=== PATIENT | female | born 1950 | race African-American/Black ===

== ENCOUNTER 2019-11-08 08:38 | Inpatient (IN) | payer MEDICARE, OTHER ==
[2019-11-08 11:20] VITALS: BMI 20.6
[2019-11-08] MEDS ORDERED: Senokot S 8.6-50 MG TAB PO PRN (11:43)
[2019-11-08] MEDS ORDERED: Acetaminophen 325 MG TAB PO PRN (11:43)
[2019-11-08] MEDS ORDERED: Dextrose 50% Abboject 50 ML SYRINGE SLOW IVP PRN (11:43)
[2019-11-08] MEDS ORDERED: Calcium Carbonate 500 MG ChewTAB PO PRN (11:43)
[2019-11-08] MEDS ORDERED: Dextrose 5% in Water 1,000 ML IV PRN (11:43)
[2019-11-08] MEDS ORDERED: Guaifenesin DM 100-10/5 ML UDCUP PO PRN (11:43)
[2019-11-08] MEDS ORDERED: HumaLOG 300 UNITS/3 ML VIAL SC PRN (11:43)
[2019-11-08] MEDS ORDERED: Ondansetron PF 4 MG/2 ML Vial IVP PRN (11:43)
[2019-11-08] MEDS ORDERED: Bisacodyl 10 MG SUPP PR PRN (11:43)
--- NOTE | 2019-11-08 13:45 | MRI ---
BRAIN MRI WITHOUT CONTRAST: 11/08/19 HISTORY: Acute infarction. TECHNIQUE: Multiplanar and multisequence MR imaging of the brain obtained without contrast. FINDINGS: There is a focal area of restricted diffusion involving the periventricular white matter adjacent to the mid body of the right lateral ventricle measuring approximately 1.1 cm in AP dimension consistent with an area of acute right sided infarction. The axial gradient echo imaging demonstrates no intrac ranial hemorrhage. No additional areas of acute infarction are noted on this examination. There is multifocal periventricular deep and subcortical white matter T2 and FLAIR hyperintensity sug gesting small vessel disease. Regional bone marrow signal intensity appears grossly unremarkable. The imaged paranasal sinuses and mastoid air cells appear grossly unremarkable. Limited assessment of the arterial flow voids at the axial level of the skull base secondary to motio n demonstrate no acute findings. IMPRESSION: Small area of acute infarction involving the periventricular white matter adjacent to the body of the right lateral ventricle. Small vessel disease. POS: [facility]
--- NOTE | 2019-11-08 14:03 | CON ---
NEUROLOGY CONSULTATION DATE OF CONSULTATION: 11/08/2019 REASON FOR CONSULTATION: Left-sided weakness. HISTORY OF PRESENT ILLNESS: Ms. Sweeney is a 69-year-old female with history significant for hypertension, diabetes, gastroesophageal reflux disease, hyperlipidemia, presented to the [facility] Emergency Room with acute onset left-sided weakness and slurred speech. She was first taken to [facility] and then transferred to [facility] for further management of stroke. The patient denies nausea, vomiting, headache, chest pain, abdominal pain, dizziness, vertigo, loss of vision, or abnormal body movements associated with stroke-like symptoms. REVIEW OF SYSTEMS: All 10 systems were reviewed and were negative except pertinent positives and negatives mentioned in the HPI. PAST MEDICAL HISTORY: Hypertension, hyperlipidemia, diabetes, gastroesophageal reflux disease. PAST SURGICAL HISTORY: No significant past surgical history. FAMILY HISTORY: Significant for hypertension and diabetes. ALLERGIES: METFORMIN, PENICILLIN. SOCIAL HISTORY: The patient denies smoking, alcohol, or illegal drug use. PHYSICAL EXAMINATION: VITAL SIGNS: Blood pressure 185/86, pulse 62, respiratory rate 17, and temperature 98.4. GENERAL: Alert and awake female, in no acute distress. CVS: Regular rate and rhythm. CHEST: Clear. ABDOMEN: Soft. NECK: Supple. NEUROLOGIC: Mental status, the patient is alert and oriented to person, place, and time. Recent and remote memory intact. Fund of knowledge is appropriate. Cranial nerves 2 through 12 intact. Motor, muscle tone is decreased in the left upper and lower extremities. Bulk is normal. Strength 5/5 in the right upper and lower extremity and 2/5 in the left upper and lower extremity. Decreased sensation to touch on the left. Cerebellar, finger-nose testing unable to perform on the left secondary to weakness. DATA REVIEWED: MRI of the brain reviewed which was consistent with acute infarction in the right periventricular matter. ASSESSMENT AND PLAN: Ms. Zahra Geiger is a 69-year-old with history significant for hypertension, hyperlipidemia, gastroesophageal reflux disease, and diabetes, She presented with slurred speech and acute onset left-sided weakness, most likely stroke in the right middle cerebral artery distribution. MRI of the brain completed, results pending. Recommend 2D echo to evaluate for left ventricular ejection fraction, telemetry, carotid Dopplers to rule out hemodynamically significant stenosis. Neuro checks every 4 hours. Recommend aspirin and high-intensity statin for secondary stroke prevention. Check fasting lipid panel, hemoglobin A1c, and TSH. Continue home medications. Permissive blood pressure control at this time. Strict control of blood glucose. PT/OT/speech. Continue home medications. Continue medical management per Primary Team. Plan discussed with the patient and the nursing staff. Job ID: [id number] MTDD
[2019-11-08] MEDS: Sodium Chloride 0.9% 1,000 ML IV SCH (14:54)
[2019-11-08] MEDS: HumaLOG 300 UNITS/3 ML VIAL SC PRN ×2 (15:00→18:28)
--- NOTE | 2019-11-08 16:35 | HP ---
REASON FOR ADMISSION: Left hemiparesis, dysarthria, 7th nerve palsy. HISTORY OF PRESENTING ILLNESS: The patient went to [facility] in [place] after she fell 2 times once on Wednesday and yesterday as well. She was apparently sitting in her chair and was trying to ambulate when she fell both times. 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 She felt very numb on her left half of her face as well. She could not stretch her fingers or grasp stuff with her left hand. She normally walks with a cane inside the house. At [facility], the patient has had CT angio of brain and CT of brain done. She was transferred here for higher level of care. The CT angio did not reveal any stenosis, thrombus, or aneurysms. No complaints of cough or expectoration. No history of exposure to COVID. She lives alone. The patient is a right-handed person. Currently, she is oriented and is responding to questions well. PAST MEDICAL AND SURGICAL HISTORY: 1. Hypertension. 2. Diabetes mellitus type 2. 3. Dyslipidemia. 4. Prior history of right facial and arm numbness. 5. Colonoscopy. 6. Right-sided peripheral vascular disease with angioplasty. 7. Tubal ligation. 8. Upper endoscopy. CURRENT MEDICATIONS: The patient is on; 1. Atorvastatin 40 mg p.o. at bedtime. 2. Glimepiride 4 mg p.o. q.a.m. 3. Lisinopril with hydrochlorothiazide 20/25 mg p.o. daily. 4. Nifedipine extended release 30 mg p.o. at bedtime. ALLERGIES: ALLERGIC TO METFORMIN AND PENICILLIN. PERSONAL HISTORY: Smokes 10 cigarettes a day. Drinks on social occasions. Does not abuse drugs. FAMILY HISTORY: Both parents in their 70s and both have had history of heart disease. Mother was a diabetic and had breast cancer as well. CODE STATUS: Full. [employer]: Her cousin, Mr. Johan Archuleta, number to reach him is [phone]. REVIEW OF SYSTEMS: CONSTITUTIONAL: Negative for weight loss or gain, ability to conduct usual activities. SKIN: Negative for rash, itching. EYES: Negative for double vision, pain. ENT/MOUTH: Negative for nose bleeding, neck stiffness, pain, tenderness. CARDIOVASCULAR: Negative for palpitations, dyspnea on exertion, orthopnea. RESPIRATORY: Negative for shortness of breath, wheezing, cough, hemoptysis, fever or night sweats. GASTROINTESTINAL: Negative for poor appetite, abdominal pain, heartburn, nausea, vomiting, constipation, or diarrhea. GENITOURINARY: Negative for urgency, frequency, dysuria, nocturia. MUSCULOSKELETAL: Negative for pain, swelling. NEUROLOGIC/PSYCHIATRIC: Negative for anxiety, depression. ALLERGY/IMMUNOLOGIC: Negative for skin rash, bleeding tendency. PHYSICAL EXAMINATION: GENERAL: The patient is a 69-year-old female, who is currently not in any acute distress. VITAL SIGNS: Blood pressure 186/86, pulse 62 per minute, respiratory rate 18 per minute, temperature 98.4 degrees Fahrenheit, saturating 96% on room air. NECK: Supple. No elevated JVD. HEENT: Eyes; extraocular muscles intact. Pupils reacting to light. Oral cavity, mucous membranes are moist. No exudates or congestion. CARDIOVASCULAR: S1, S2 heard. Murmur plus regular rhythm. RESPIRATORY: Air entry 1+ bilateral. No ischemic ulcerations or gangrene. CENTRAL NERVOUS SYSTEM: The patient appears to have flattening of nasolabial fold on the right side. The patient also has flattening of her forehead on the left side, on the left forehead. No other obvious cranial nerve palsies were seen clinically. Motor system, strength is 1/5 in both left upper and lower extremities. Babinski is downgoing on the left side. Reflexes are equivocal on the left upper and lower, right upper and lower with 2+. Babinski is downgoing on the right. Gait was not tested. PSYCHIATRIC: The patient's mood is euthymic. No hallucinations or delusions. CLINICAL IMPRESSION AND PLAN: The patient will be admitted to Stroke Unit for acute left hemiparesis. She also has 7th nerve palsy and a bit of dysarthria as well. We will obtain MRI of brain, echo with 2D Doppler, and a 12-lead EKG as well. We will obtain consultation with Dr. Arora for Neurology. PT, OT, and speech evaluations will be requested. She will be on aspirin, Lipitor, glimepiride, lisinopril with hydrochlorothiazide, and Procardia XL for now. We will also gently hydrate her with normal saline at 70 mL per hour. If needed, further medications will be added for her hypertension. We will slowly mobilize her during her stay here. The patient likely will need inpatient rehab for discharge plan. She already has ACL tear on the left knee and current strength of 1/5 in the left lower and upper extremity in addition to that. Job ID: [id number]
[2019-11-08] MEDS: Famotidine 20 MG TAB PO SCH (21:22)
[2019-11-08] MEDS: NIFEdipine XL 30 MG TAB PO SCH (21:23)
[2019-11-08] MEDS: Atorvastatin Calcium 40 MG TAB PO SCH (21:23)
[2019-11-09 05:20] LABS: #Basophils 0.1 thou/uL (0.0-0.2); #Eosinphils 0.2 thou/uL (0.0-0.7); #Monocytes 0.6 thou/uL (0.11-0.59); #Neutrophils 2.7 thou/uL (1.40-6.50); %Eosinophils 3.1 % (0.0-10.0); %Lymphocytes 36.6 % (21.0-51.0); %Monocytes 10.8 % (0.0-10.0); %Neutrophils 48.6 % (42.0-75.0); Hemoglobin 13.2 g/dL (12.0-16.0); Mean Corpuscular HGB CONC 31.4 g/dL (32.0-36.0); Mean Corpuscular Volume 98.7 fL (78.0-98.0); Mean Platelet Volume 8.8 fL (7.4-10.4); Platelet Count 248 thou/uL (130-400); RBC Distribution Width 11.5 % (11.5-14.5); Red Blood Cell (RBC) Count 4.27 mill/uL (4.20-5.40); White Blood Cell (WBC) Count 5.5 thou/uL (4.8-10.8)
[2019-11-09] MEDS: Sodium Chloride 0.9% 1,000 ML IV SCH (05:31)
[2019-11-09] MEDS: HumaLOG 300 UNITS/3 ML VIAL SC PRN ×3 (05:36→18:01)
[2019-11-09 05:41] LABS: ALT (SGPT) 10 U/L (8-55); AST (SGOT) 13 U/L (5-34); Albumin 3.5 g/dL (3.4-4.8); Alkaline Phosphatase 60 U/L (40-110); Anion Gap 13 mmol/L (10-20); BUN (Urea Nitrogen) 10 mg/dL (9.8-20.1); Bilirubin, Total 0.6 mg/dL (0.2-1.2); Calc. Creatinine Clearance 77 mL/min (70-130); Calcium 9.4 mg/dL (7.8-10.44); Carbon Dioxide 23 mmol/L (23-31); Cardiac Risk 3.4 (Less than 4.5); Chloride 106 mmol/L (98-107); Cholesterol 179 mg/dl (< 200 Desired); Estimated GFR-MDRD Greater than 90; Globulin 3.5 g/dL (2.4-3.5); Glucose 214 mg/dL (80-115); HDL Cholesterol 53 mg/dL (>60 Neg Risk); LDL Cholesterol, Calculated 104 mg/dL; Potassium 3.5 mmol/L (3.5-5.1); Sodium 138 mmol/L (136-145); Triglycerides 109 mg/dL (Less than 150)
[2019-11-09] MEDS: Glimepiride 4 MG TAB PO SCH (09:03)
[2019-11-09] MEDS: Aspirin 81 mg Enteric Coated Tablet PO SCH (09:03)
[2019-11-09] MEDS: Enoxaparin Sodium 40 MG/0.4 ML SYRINGE SC SCH (09:04)
[2019-11-09] MEDS: Famotidine 20 MG TAB PO SCH ×2 (09:04→22:00)
[2019-11-09] MEDS: Lisinopril/Hydrochlorothiazide 20/25 mg Tablet PO SCH (09:05)
--- NOTE | 2019-11-09 10:02 | PDOC.HOSPP ---
- Subjective Encounter Date: 11/09/19 Encounter Time: 09:30 Subjective: Ms. Geiger was upright in bed without overnight complaints. Denies pain. She is still 1/5 motor strength in LUE and LLE. PT came to see her yesterday but she did not ambulate. Speech therapy said she could swallow pureed. - Objective Vital Signs & Weight: Vital Signs (12 hours) Temp Pulse Resp BP BP Pulse Ox 11/09/19 09:05 65 161/87 H 11/09/19 07:20 98.1 F 64 21 H 148/73 H 98 11/09/19 04:10 98.0 F 59 L 16 155/78 H 95 11/09/19 00:45 97.9 F 59 L 20 181/88 H 98 Weight Weight 57.969 kg I&O: 11/08/19 11/09/19 11/10/19 06:59 06:59 06:59 Intake Total 1174 Output Total 350 Balance 824 Result Diagrams: 11/09/19 04:43 11/09/19 04:43 Additional Labs: Accuchecks 11/09/19 11/08/19 11/08/19 05:35 21:26 15:59 POC Glucose 207 H 186 H 237 H 11/08/19 14:15 POC Glucose 270 H Hospitalist ROS - Review of Systems Constitutional: denies: fever, chills Respiratory: denies: cough, shortness of breath Musculoskeletal: denies: other (generalized pain) Neurological: reports: weakness. denies: change in speech - Medication Medications: Active Medications Generic Name Dose Route Start Last Admin Trade Name Tasha PRN Reason Stop Dose Admin Aspirin 81 mg 11/09/19 09:00 11/09/19 09:03 Ecotrin PO 81 mg DAILY JESSY Administration Atorvastatin Calcium 40 mg 11/08/19 21:00 11/08/19 21:23 Lipitor PO 40 mg HS JESSY Administration Enoxaparin Sodium 40 mg 11/09/19 09:00 11/09/19 09:04 Lovenox SC 40 mg 0900 JESSY Administration Famotidine 20 mg 11/08/19 21:00 11/09/19 09:04 Pepcid PO 20 mg BID JESSY Administration Glimepiride 4 mg 11/09/19 08:00 11/09/19 09:03 Amaryl PO 4 mg QAM-WM JESSY Administration Lisinopril/HCTZ 1 tab 11/09/19 09:00 11/09/19 09:05 Prinizide 20-25 PO 1 tab DAILY JESSY Administration Sodium Chloride 1,000 mls @ 70 mls/hr 11/08/19 11:45 11/09/19 05:31 Normal Saline 0.9% IV 11/09/19 16:19 1,000 mls .[id number] JESSY Administration Insulin Human Lispro 0 units 11/08/19 11:43 11/09/19 05:36 Humalog SC 4 unit .MODERATE SLIDING SC PRN Administration Moderate Correctional Scale Nifedipine 30 mg 11/08/19 21:00 11/08/19 21:23 Procardia Xl PO 30 mg HS JESSY Administration - Exam General Appearance: NAD, awake alert Eye: PERRL, anicteric sclera ENT: no oropharyngeal lesions, moist mucosa Neck: supple, no JVD Heart: RRR, no murmur Respiratory: CTAB, no wheezes Gastrointestinal: soft, non-tender, non-distended, normal bowel sounds Extremities: no cyanosis, no edema Neurological: hemiplegia Neurological - other findings: left, facial palsy Psychiatric: normal affect, A&O x 3 Hosp A/P (1) Left hemiplegia Code(s): G81.94 - HEMIPLEGIA, UNSPECIFIED AFFECTING LEFT NONDOMINANT SIDE Status: Acute (2) HTN (hypertension) Code(s): I10 - ESSENTIAL (PRIMARY) HYPERTENSION Status: Chronic Qualifiers: Hypertension type: essential hypertension Qualified Code(s): I10 - Essential (primary) hypertension (3) Dyslipidemia Code(s): E78.5 - HYPERLIPIDEMIA, UNSPECIFIED Status: Chronic (4) DM type 2 (diabetes mellitus, type 2) Status: Chronic Qualifiers: Diabetes mellitus skilled nursing insulin use: without financial brokers use Diabetes mellitus complication status: with other specified complication Qualified Code (s): E11.69 - Type 2 diabetes mellitus with other specified complication - Plan PT/OT, speech therapy, out of bed/ambulate, DVT proph w/lovenox is on aspirin, lipitor, PT/OT to eval and ambulate as tolerated likely will need rehab encourage po intake continue home htn med along with glimepride
--- NOTE | 2019-11-09 10:38 | PDOC.HOSPP ---
- Subjective Encounter Date: 11/09/19 Encounter Time: 09:30 Subjective: feels better, no new complaints no sob or trouble swallowing - Objective Vital Signs & Weight: Vital Signs (12 hours) Temp Pulse Resp BP BP Pulse Ox 11/09/19 09:05 65 161/87 H 11/09/19 07:20 98.1 F 64 21 H 148/73 H 98 11/09/19 04:10 98.0 F 59 L 16 155/78 H 95 11/09/19 00:45 97.9 F 59 L 20 181/88 H 98 Weight Weight 127 lb 12.8 oz I&O: 11/08/19 11/09/19 11/10/19 06:59 06:59 06:59 Intake Total 1174 Output Total 350 Balance 824 Result Diagrams: 11/09/19 04:43 11/09/19 04:43 Additional Labs: Accuchecks 11/09/19 11/08/19 11/08/19 05:35 21:26 15:59 POC Glucose 207 H 186 H 237 H 11/08/19 14:15 POC Glucose 270 H Hospitalist ROS - Medication Medications: Active Medications Generic Name Dose Route Start Last Admin Trade Name Freq PRN Reason Stop Dose Admin Aspirin 81 mg 11/09/19 09:00 11/09/19 09:03 Ecotrin PO 81 mg DAILY JESSY Administration Atorvastatin Calcium 40 mg 11/08/19 21:00 11/08/19 21:23 Lipitor PO 40 mg HS JESSY Administration Enoxaparin Sodium 40 mg 11/09/19 09:00 11/09/19 09:04 Lovenox SC 40 mg 0900 JESSY Administration Famotidine 20 mg 11/08/19 21:00 11/09/19 09:04 Pepcid PO 20 mg BID JESSY Administration Glimepiride 4 mg 11/09/19 08:00 11/09/19 09:03 Amaryl PO 4 mg QAM-WM JESSY Administration Lisinopril/HCTZ 1 tab 11/09/19 09:00 11/09/19 09:05 Prinizide 20-25 PO 1 tab DAILY JESSY Administration Sodium Chloride 1,000 mls @ 70 mls/hr 11/08/19 11:45 11/09/19 05:31 Normal Saline 0.9% IV 11/09/19 16:19 1,000 mls .[id number] JESSY Administration Insulin Human Lispro 0 units 11/08/19 11:43 11/09/19 05:36 Humalog SC 4 unit .MODERATE SLIDING SC PRN Administration Moderate Correctional Scale Nifedipine 30 mg 11/08/19 21:00 11/08/19 21:23 Procardia Xl PO 30 mg HS JESSY Administration - Exam General Appearance: NAD, awake alert Eye: PERRL, anicteric sclera ENT: no oropharyngeal lesions, moist mucosa Neck: supple, no JVD Heart: RRR, no murmur Respiratory: no wheezes, no rales Gastrointestinal: soft, non-tender, non-distended, normal bowel sounds Extremities: no cyanosis, no edema Neurological: hemiplegia Neurological - other findings: dysarthria mild, 7th nr palsy Psychiatric: normal affect, A&O x 3 Hosp A/P (1) Left hemiplegia Code(s): G81.94 - HEMIPLEGIA, UNSPECIFIED AFFECTING LEFT NONDOMINANT SIDE Status: Acute (2) HTN (hypertension) Code(s): I10 - ESSENTIAL (PRIMARY) HYPERTENSION Status: Chronic Qualifiers: Hypertension type: essential hypertension Qualified Code(s): I10 - Essential (primary) hypertension (3) Dyslipidemia Code(s): E78.5 - HYPERLIPIDEMIA, UNSPECIFIED Status: Chronic (4) DM type 2 (diabetes mellitus, type 2) Status: Chronic Qualifiers: Diabetes mellitus terminal block assembler insulin use: without terminal block assembler use Diabetes mellitus complication status: with other specified complication Qualified Code (s): E11.69 - Type 2 diabetes mellitus with other specified complication - Plan is on aspirin, lipitor, PT/OT to eval and ambulate as tolerated likely will need rehab encourage po intake continue home htn med along with glimepride
--- NOTE | 2019-11-09 11:35 | PDOC.HOSPP ---
- Subjective Encounter Date: 11/09/19 Subjective: NEUROLOGY PROGRESS NOTE Patient alert and awake. Continues to have left hemiplegia.MRI brain positive for acute lacunar infarction. Significantdeficits. Will repeat Head CT today. - Objective Vital Signs & Weight: Vital Signs (12 hours) Temp Pulse Resp BP BP Pulse Ox 11/09/19 09:05 65 161/87 H 11/09/19 07:20 98.1 F 64 21 H 148/73 H 98 11/09/19 04:10 98.0 F 59 L 16 155/78 H 95 11/09/19 00:45 97.9 F 59 L 20 181/88 H 98 Weight Weight 127 lb 12.8 oz I&O: 11/08/19 11/09/19 11/10/19 06:59 06:59 06:59 Intake Total 1174 Output Total 350 Balance 824 Result Diagrams: 11/09/19 04:43 11/09/19 04:43 Additional Labs: Accuchecks 11/09/19 11/09/19 11/08/19 11:01 05:35 21:26 POC Glucose 204 H 207 H 186 H 11/08/19 11/08/19 15:59 14:15 POC Glucose 237 H 270 H Radiology Reviewed by me: Yes EKG Reviewed by me: Yes Hospitalist ROS - Review of Systems Constitutional: denies: fever, chills, sweats, weakness, malaise, other Eyes: denies: pain, vision change, conjunctivae inflammation, eyelid inflammation, redness, other ENT: denies: ear pain, ear discharge, nose pain, nose discharge, nose congestion , mouth pain, mouth swelling, throat pain, throat swelling, other Respiratory: denies: cough, dry, shortness of breath, hemoptysis, SOB with excertion, pleuritic pain, sputum, wheezing, other Cardiovascular: denies: chest pain, palpitations, orthopnea, paroxysmal noc. dyspnea, edema, light headedness, other Gastrointestinal: denies: nausea, vomiting, abdominal pain, diarrhea, constipation, melena, hematochezia, other Genitourinary: denies: dysuria, frequency, incontinence, hematuria, retention, other Musculoskeletal: denies: neck pain, shoulder pain, arm pain, back pain, hand pain, leg pain, foot pain, other Neurological: reports: weakness, incoordination. denies: numbness, change in speech, confusion, seizures, other - Medication Medications: Active Medications Generic Name Dose Route Start Last Admin Trade Name Freq PRN Reason Stop Dose Admin Aspirin 81 mg 11/09/19 09:00 11/09/19 09:03 Ecotrin PO 81 mg DAILY JESSY Administration Atorvastatin Calcium 40 mg 11/08/19 21:00 11/08/19 21:23 Lipitor PO 40 mg HS JESSY Administration Enoxaparin Sodium 40 mg 11/09/19 09:00 11/09/19 09:04 Lovenox SC 40 mg 0900 JESSY Administration Famotidine 20 mg 11/08/19 21:00 11/09/19 09:04 Pepcid PO 20 mg BID JESSY Administration Glimepiride 4 mg 11/09/19 08:00 11/09/19 09:03 Amaryl PO 4 mg QAM-WM JESSY Administration Lisinopril/HCTZ 1 tab 11/09/19 09:00 11/09/19 09:05 Prinizide 20-25 PO 1 tab DAILY JESSY Administration Sodium Chloride 1,000 mls @ 70 mls/hr 11/08/19 11:45 11/09/19 05:31 Normal Saline 0.9% IV 11/09/19 16:19 1,000 mls .[id number] JESSY Administration Insulin Human Lispro 0 units 11/08/19 11:43 11/09/19 05:36 Humalog SC 4 unit .MODERATE SLIDING SC PRN Administration Moderate Correctional Scale Nifedipine 30 mg 11/08/19 21:00 11/08/19 21:23 Procardia Xl PO 30 mg HS JESSY Administration Pneumococcal 13-Valent Conj Vacc 0.5 ml 11/09/19 11:45 11/09/19 11:10 Prevnar IM 11/09/19 11:46 Not Given .ONCE ONE - Exam General Appearance: awake alert Eye: PERRL ENT: normocephalic atraumatic Neck: supple Heart: RRR Respiratory: CTAB Gastrointestinal: soft Extremities: no cyanosis Skin: normal turgor Neurological: facial droop, hemiplegia, speech deficit Psychiatric: normal affect, normal behavior, A&O x 3, oriented to person, oriented to place, oriented to time Hosp A/P (1) Acute CVA (cerebrovascular accident) Code(s): I63.9 - CEREBRAL INFARCTION, UNSPECIFIED Status: Acute (2) DM type 2 (diabetes mellitus, type 2) Status: Chronic Qualifiers: Diabetes mellitus fci insulin use: without fci use Diabetes mellitus complication status: with other specified complication Qualified Code (s): E11.69 - Type 2 diabetes mellitus with other specified complication (3) Dyslipidemia Code(s): E78.5 - HYPERLIPIDEMIA, UNSPECIFIED Status: Chronic (4) HTN (hypertension) Code(s): I10 - ESSENTIAL (PRIMARY) HYPERTENSION Status: Chronic Qualifiers: Hypertension type: essential hypertension Qualified Code(s): I10 - Essential (primary) hypertension - Plan PT/OT, speech therapy, DVT proph w/SCDs 69 year old with left hemiplegia. MRI brain positive for acute infarction. Significant deficits. Will repeat Head CT today to assess for extension of stroke. Fluctuating neurological deficits . Recommend EEG to rule out seizure activity. Recommend aspirin and high intensity statin for secondary stroke prevention. Neurochecks every 4 hours. Permissive BP control. Strict control of BG. Continue home medications. PT/OT/Speech Continue medical management per primary team. Plan discussed with patient and with the team during the MDR rounds.
[2019-11-09] MEDS ORDERED: Prevnar 13-Val Conj/PF 0.5 ML SYRINGE IM ONE (11:45)
--- NOTE | 2019-11-09 13:07 | CT ---
CT BRAIN WITHOUT CONTRAST: HISTORY: Followup CVA. Left weakness. FINDINGS: A hypodensity is seen in the region of the acute infarction noted on the previous day's MRI in the pe riventricular white matter adjacent to the body of the right lateral ventricle. No hemorrhagic trans formation is seen. No new acute infarcts, hemorrhage, midline shift, or abnormal extraaxial fluid co llections are noted. Old infarction in the left thalamus was again seen. The ventricular size is ap propriate and the basilar cisterns are patent. The bony calvarium is intact. IMPRESSION: No hemorrhagic transformation of the acute infarction in the right periventricular white matter adjac ent to the body of the right lateral ventricle since the previous day's exam. POS: OFF
--- NOTE | 2019-11-09 13:56 | EEG ---
DATE OF SERVICE: 11/09/2019 ATTENDING PHYSICIAN: Luisa Arora MD. This EEG was performed using 24-channel [employer] video digital EEG machine with 24-disk electrodes. This was an extended 20 hours 52 seconds of inpatient video EEG recording, which was started on November 09, 2019. Digital analysis of the EEG was done for spike and seizure detection, which revealed no abnormalities. BACKGROUND: The posterior background rhythm was not observed. HYPERVENTILATION: Not performed. PHOTIC STIMULATION: Not performed. SLEEP: No stage changes were observed. EEG DIAGNOSIS: Absence of posterior background rhythm. CLINICAL INTERPRETATION: This EEG is consistent with mild generalized nonspecific cerebral dysfunction. Job ID: [id number]
[2019-11-09] MEDS: NIFEdipine XL 30 MG TAB PO SCH (22:00)
[2019-11-09] MEDS: Atorvastatin Calcium 40 MG TAB PO SCH (22:01)
[2019-11-10] MEDS: HumaLOG 300 UNITS/3 ML VIAL SC PRN ×3 (06:37→17:07)
[2019-11-10] MEDS: Famotidine 20 MG TAB PO SCH ×2 (08:36→20:00)
[2019-11-10] MEDS: Aspirin 81 mg Enteric Coated Tablet PO SCH (08:37)
[2019-11-10] MEDS: Glimepiride 4 MG TAB PO SCH (08:37)
[2019-11-10] MEDS: Enoxaparin Sodium 40 MG/0.4 ML SYRINGE SC SCH (08:37)
[2019-11-10] MEDS: Lisinopril/Hydrochlorothiazide 20/25 mg Tablet PO SCH (08:37)
--- NOTE | 2019-11-10 11:25 | PDOC.HOSPP ---
- Subjective Encounter Date: 11/10/19 Subjective: NEUROLOGY PROGRESS NOTE Patient alert and awake. Continues to have left hemiplegia and left hemineglect . MRI brain positive for acute lacunar infarction. Significant deficits. Repeat Head CT stable. - Objective Vital Signs & Weight: Vital Signs (12 hours) Temp Pulse Pulse Pulse Resp BP BP 11/10/19 09:31 63 64 158/78 H 148/80 H 11/10/19 08:42 11/10/19 08:37 59 L 11/10/19 08:00 98.7 F 59 L 16 11/10/19 03:55 98.1 F 59 L 16 11/09/19 23:58 98.7 F 16 BP Pulse Ox 11/10/19 09:31 11/10/19 08:42 97 11/10/19 08:37 11/10/19 08:00 160/87 H 97 11/10/19 03:55 143/68 H 99 11/09/19 23:58 160/77 H 97 Weight Weight 127 lb 12.8 oz I&O: 11/09/19 11/10/19 11/11/19 06:59 06:59 06:59 Intake Total 1174 806 600 Output Total 350 1350 Balance 824 -544 600 Result Diagrams: 11/09/19 04:43 11/09/19 04:43 Additional Labs: Accuchecks 11/10/19 11/09/19 11/09/19 05:32 20:28 16:51 POC Glucose 173 H 194 H 165 H Radiology Reviewed by me: Yes EKG Reviewed by me: Yes Hospitalist ROS - Review of Systems Constitutional: denies: fever, chills, sweats, weakness, malaise, other Respiratory: denies: cough, dry, shortness of breath, hemoptysis, SOB with excertion, pleuritic pain, sputum, wheezing, other Cardiovascular: denies: chest pain, palpitations, orthopnea, paroxysmal noc. dyspnea, edema, light headedness, other Gastrointestinal: denies: nausea, vomiting, abdominal pain, diarrhea, constipation, melena, hematochezia, other Genitourinary: denies: dysuria, frequency, incontinence, hematuria, retention, other Musculoskeletal: denies: neck pain, shoulder pain, arm pain, back pain, hand pain, leg pain, foot pain, other Skin: denies: rash, lesions, destinee, bruising, other Neurological: reports: weakness, numbness, incoordination, confusion - Medication Medications: Active Medications Generic Name Dose Route Start Last Admin Trade Name Serafinq PRN Reason Stop Dose Admin Aspirin 81 mg 11/09/19 09:00 11/10/19 08:37 Ecotrin PO 81 mg DAILY JESSY Administration Atorvastatin Calcium 40 mg 11/08/19 21:00 11/09/19 22:01 Lipitor PO 40 mg HS JESSY Administration Enoxaparin Sodium 40 mg 11/09/19 09:00 11/10/19 08:37 Lovenox SC 40 mg 0900 JESSY Administration Famotidine 20 mg 11/08/19 21:00 11/10/19 08:36 Pepcid PO 20 mg BID JESSY Administration Glimepiride 4 mg 11/09/19 08:00 11/10/19 08:37 Amaryl PO 4 mg QAM-WM JESSY Administration Lisinopril/HCTZ 1 tab 11/09/19 09:00 11/10/19 08:37 Prinizide 20-25 PO 1 tab DAILY JESSY Administration Insulin Human Lispro 0 units 11/08/19 11:43 11/10/19 06:37 Humalog SC 2 unit .MODERATE SLIDING SC PRN Administration Moderate Correctional Scale Nifedipine 30 mg 11/08/19 21:00 11/09/19 22:00 Procardia Xl PO 30 mg HS JESSY Administration Sodium Chloride 10 ml 11/08/19 11:43 11/10/19 08:37 Flush - Normal Saline IVF 10 ml PRN PRN Administration Saline Flush - Exam General Appearance: awake alert Eye: PERRL ENT: normocephalic atraumatic Neck: supple Heart: RRR Respiratory: CTAB Gastrointestinal: soft Extremities: no cyanosis Skin: normal turgor Neurological: no new deficit, hemiplegia Neurological - other findings: left hemiplegia and neglect Musculoskeletal: no muscle wasting Psychiatric: normal affect, normal behavior, oriented to person, oriented to place Hosp A/P (1) Acute CVA (cerebrovascular accident) Code(s): I63.9 - CEREBRAL INFARCTION, UNSPECIFIED Status: Acute (2) DM type 2 (diabetes mellitus, type 2) Status: Chronic Qualifiers: Diabetes mellitus manager terminal insulin use: without manager terminal use Diabetes mellitus complication status: with other specified complication Qualified Code (s): E11.69 - Type 2 diabetes mellitus with other specified complication (3) Dyslipidemia Code(s): E78.5 - HYPERLIPIDEMIA, UNSPECIFIED Status: Chronic (4) HTN (hypertension) Code(s): I10 - ESSENTIAL (PRIMARY) HYPERTENSION Status: Chronic Qualifiers: Hypertension type: essential hypertension Qualified Code(s): I10 - Essential (primary) hypertension - Plan PT/OT, speech therapy, DVT proph w/SCDs 69 year old with left hemiplegia. MRI brain positive for acute infarction. Significant deficits. Repeat Head CT reviewed to assess for extension of stroke which was stable.. Fluctuating neurological deficits . EEG negative for seizure activity. Continue aspirin and high intensity statin for secondary stroke prevention. Neurochecks every 4 hours. Moniter BP Strict control of BG. Continue home medications. PT/OT/Speech Continue medical management per primary team. Plan discussed with patient and with the team during the stroke rounds.
--- NOTE | 2019-11-10 13:09 | PDOC.HOSPP ---
- Subjective Encounter Date: 11/10/19 Encounter Time: 09:00 Subjective: no new complaints, is sitting in chair is npo per speech - Objective Vital Signs & Weight: Vital Signs (12 hours) Temp Pulse Pulse Pulse Resp BP BP 11/10/19 11:48 98.8 F 69 16 11/10/19 09:31 63 64 158/78 H 148/80 H 11/10/19 08:42 11/10/19 08:37 59 L 11/10/19 08:00 98.7 F 59 L 16 11/10/19 03:55 98.1 F 59 L 16 BP Pulse Ox 11/10/19 11:48 134/82 97 11/10/19 09:31 11/10/19 08:42 97 11/10/19 08:37 11/10/19 08:00 160/87 H 97 11/10/19 03:55 143/68 H 99 Weight Weight 127 lb 12.8 oz I&O: 11/09/19 11/10/19 11/11/19 06:59 06:59 06:59 Intake Total 1174 806 600 Output Total 350 1350 Balance 824 -544 600 Result Diagrams: 11/09/19 04:43 11/09/19 04:43 Additional Labs: Accuchecks 11/10/19 11/09/19 11/09/19 05:32 20:28 16:51 POC Glucose 173 H 194 H 165 H Hospitalist ROS - Medication Medications: Active Medications Generic Name Dose Route Start Last Admin Trade Name Freq PRN Reason Stop Dose Admin Aspirin 81 mg 11/09/19 09:00 11/10/19 08:37 Ecotrin PO 81 mg DAILY JESSY Administration Atorvastatin Calcium 40 mg 11/08/19 21:00 11/09/19 22:01 Lipitor PO 40 mg HS JESSY Administration Enoxaparin Sodium 40 mg 11/09/19 09:00 11/10/19 08:37 Lovenox SC 40 mg 0900 JESSY Administration Famotidine 20 mg 11/08/19 21:00 11/10/19 08:36 Pepcid PO 20 mg BID JESSY Administration Glimepiride 4 mg 11/09/19 08:00 11/10/19 08:37 Amaryl PO 4 mg QAM-WM JESSY Administration Lisinopril/HCTZ 1 tab 11/09/19 09:00 11/10/19 08:37 Prinizide 20-25 PO 1 tab DAILY JESSY Administration Insulin Human Lispro 0 units 11/08/19 11:43 11/10/19 11:29 Humalog SC 6 unit .MODERATE SLIDING SC PRN Administration Moderate Correctional Scale Nifedipine 30 mg 11/08/19 21:00 11/09/19 22:00 Procardia Xl PO 30 mg HS JESSY Administration Sodium Chloride 10 ml 11/08/19 11:43 11/10/19 08:37 Flush - Normal Saline IVF 10 ml PRN PRN Administration Saline Flush - Exam General Appearance: awake alert Eye: PERRL, anicteric sclera ENT: no oropharyngeal lesions, moist mucosa Neck: supple, no JVD Heart: RRR, no murmur Respiratory: no wheezes, no rales Gastrointestinal: soft, non-tender, non-distended, normal bowel sounds Extremities: no cyanosis, no edema Neurological: facial droop, hemiplegia, speech deficit Psychiatric: normal affect, A&O x 3 Hosp A/P (1) Left hemiplegia Code(s): G81.94 - HEMIPLEGIA, UNSPECIFIED AFFECTING LEFT NONDOMINANT SIDE Status: Acute (2) HTN (hypertension) Code(s): I10 - ESSENTIAL (PRIMARY) HYPERTENSION Status: Chronic Qualifiers: Hypertension type: essential hypertension Qualified Code(s): I10 - Essential (primary) hypertension (3) Dyslipidemia Code(s): E78.5 - HYPERLIPIDEMIA, UNSPECIFIED Status: Chronic (4) DM type 2 (diabetes mellitus, type 2) Status: Chronic Qualifiers: Diabetes mellitus alf insulin use: without rn long term care use Diabetes mellitus complication status: with other specified complication Qualified Code (s): E11.69 - Type 2 diabetes mellitus with other specified complication - Plan is on aspirin, lipitor, PT/OT to eval and ambulate as tolerated will need rehab, may dc anytime if they accept her and speech has her on a diet regimen encourage po intake once speech clears her continue home htn med along with glimepride
[2019-11-10] MEDS: NIFEdipine XL 30 MG TAB PO SCH (20:00)
[2019-11-10] MEDS: Atorvastatin Calcium 40 MG TAB PO SCH (20:00)
[2019-11-11] MEDS: Famotidine 20 MG TAB PO SCH (09:37)
[2019-11-11] MEDS: Glimepiride 4 MG TAB PO SCH (09:37)
[2019-11-11] MEDS: Aspirin 81 mg Enteric Coated Tablet PO SCH (09:37)
[2019-11-11] MEDS: Enoxaparin Sodium 40 MG/0.4 ML SYRINGE SC SCH (09:38)
[2019-11-11] MEDS: Lisinopril/Hydrochlorothiazide 20/25 mg Tablet PO SCH (09:38)
[2019-11-11] MEDS: HumaLOG 300 UNITS/3 ML VIAL SC PRN (12:15)
--- NOTE | 2019-11-11 13:58 | RAD ---
LEFT FOOT RADIOGRAPHS THREE VIEWS: 11/11/19 PROVIDED CLINICAL HISTORY: Left foot pain status post fall. FINDINGS: There is diffuse regional osteopenia. Vascular calcifications are seen. There is no evidence for frac ture or other acute osseous abnormality. If there is persistent clinical concern, conservative manage ment and follow-up imaging are advised. IMPRESSION: As above. POS: TAPAN
[2019-11-11 16:47] VITALS: BP 164/82; TEMP 99.1
--- NOTE | 2019-11-11 23:48 | DIS ---
DATE OF ADMISSION: 11/08/2019 DATE OF DISCHARGE: 11/11/2019 DISCHARGE DIAGNOSES: 1. Acute right lateral ventricle infarction. 2. Osteopenia. 3. Type 2 diabetes. 4. Hypertension. 5. Left foot pain CONSULTATIONS: Dr. Luisa Arora with Neurology. PROCEDURES PERFORMED: EEG on 11/08. BRIEF HISTORY OF PRESENT ILLNESS: This is a 69-year-old female with a past medical history of hypertension and diabetes, who presented to the emergency room after fall. The patient states that she was sitting in her chair and was trying to ambulate when she fell both times. She stated that she was unable to move her left hand, and her left half of her face and her left side of her body felt numb. She went to [facility], was found to have a CT scan of the head and CT angio of the brain which were unremarkable. She was sent here for further workup. HOSPITAL COURSE: Acute right lateral ventricle infarction: The patient underwent an MRI of her brain which showed acute infarction involving periventricular white matter next to the right lateral ventricle. The patient had left-sided weakness on exam. She was started on aspirin. She was continued on her home statin. She was seen by Neurology in consultation. Lipid panel showed an LDL of 104 and total cholesterol of 174. ECHO on 11/07 showed EF of 55% to 60%, mild MR, mild TR. There is diastolic dysfunction. The patient was seen by Physical Therapy and Occupational Therapy and thought to be candidate for rehab. On the day of discharge, she still has left-sided weakness. She will be discharged to [facility] for further care. Foot pain: On the day of discharge, she reported left side foot pain that had started in the morning. Foot x-rays were obtained, which showed no fractures. She does have osteopenia. Consider vitamin D testing as an outpatient. DISCHARGE PHYSICAL EXAMINATION: VITAL SIGNS: Temperature 99.1, heart rate 59, respiratory rate 14, O2 saturation 96% on room air, blood pressure 164/82. GENERAL: The patient is alert, awake, and oriented x3. CVS: Regular rate and rhythm with no murmurs, rubs, or gallops. LUNGS: Clear to auscultation bilaterally. ABDOMEN: Positive bowel sounds, soft, nontender, nondistended. EXTREMITIES: No edema. The patient has foot tenderness on the left foot near the ankle area and the dorsum of the foot. She has trouble dorsiflexing and plantar flexing her foot. NEUROLOGIC: The patient's cranial nerves 2 through 12 are intact. She is unable to lift up her left arm without assistance. The patient is unable to lift up her left leg either. She has 5/5 strength in her right upper and right lower extremity. She has 0/5 strength in her left upper and lower extremity. She has intact sensation in all 4 extremities. PERTINENT LABORATORY DATA: CBC 11/08: White count 12.5, hemoglobin 13.2, hematocrit 42.1, platelet count 248. BMP 11/08: Was normal with a creatinine of 0.63. LFTs: Normal. Lipid panel 11/08: Cholesterol 179, LDL 104, HDL 53. IMAGING STUDIES: Brain MRI 11/07: Small area of acute infarction involving the periventricular white matter adjacent to the body of the right lateral ventricle. There is small-vessel disease. EEG 11/08: Shows mild generalized nonspecific cerebral dysfunction. CT of brain 11/08: Shows no hemorrhagic transformation of the acute infarction. Foot x-ray 11/10: Shows diffuse osteopenia. Echo 11/07: EF 55% to 60% with diastolic dysfunction. There is mild MR. There is mild TR. There is moderate concentric LVH. DISCHARGE CONDITION: Stable. The patient does have left-sided upper extremity and lower extremity deficit. ACTIVITY: As tolerated. DIET: Diabetic diet. DISCHARGE MEDICATIONS: 1. Aspirin 81 mg p.o. daily. 2. Atorvastatin 40 mg p.o. at bedtime. 3. Nifedipine 30 mg p.o. at bedtime. 4. Lisinopril/hydrochlorothiazide 20 mg/25 mg one tablet p.o. daily. 5. Glimepiride 4 mg p.o. q.a.m. DISCHARGE INSTRUCTIONS: The patient is to follow up with her PCP in a week. Consider follow up with in a month. Job ID: [id number] RUSLAN
== END 2019-11-11 17:50 | DRG 65 ==
LOC: 2SE 10:40
PROVIDERS: ADMIT Internal Medicine; ATTEND Internal Medicine
DX: I63.9 Cerebral infarction, unspecified (principal); G81.94 Hemiplegia, unspecified affecting left nondominant side; R47.1 Dysarthria and anarthria; R47.81 Slurred speech; I10 Essential (primary) hypertension; E78.5 Hyperlipidemia, unspecified; K21.9 Gastro-esophageal reflux disease without esophagitis; E11.9 Type 2 diabetes mellitus without complications; F17.210 Nicotine dependence, cigarettes, uncomplicated; G51.0 Bell's palsy; M85.872 Other specified disorders of bone density and structure, left ankle and foot; Z88.0 Allergy status to penicillin; Z88.8 Allergy status to other drugs, medicaments and biological substances; Z98.51 Tubal ligation status; Z91.81 History of falling; R40.2362 Coma scale, best motor response, obeys commands, at arrival to emergency department; R40.2142 Coma scale, eyes open, spontaneous, at arrival to emergency department; R40.2252 Coma scale, best verbal response, oriented, at arrival to emergency department
CPT/HCPCS: 36415; 36416; 70450; 70551; 80053; 80061; 85025; 93306; 95712; 95816; 95819; 95957; J1650

== ENCOUNTER 2020-02-20 14:19 | Outpatient (CLI) | payer MEDICARE ==
[~2020-02-20 14:19] MED LIST: Iopamidol-370 76% 500 ML 1 ML ONE
--- NOTE | 2020-02-20 18:30 | CT ---
CTA OF THE ABDOMEN AND PELVIS WITH BILATERAL LOWER EXTREMITY RUNOFF: 02/20/20 INDICATIONS: History of atherosclerotic of the igiugig arteries of the right lower extremity with rest pain. COMPARISON: None. FINDINGS: Lung bases are clear. No focal hepatic lesions evident. The gallbladder is mildly contracted. The vis ualized, pancreas, adrenal glands and spleen reveal no acute abnormality. No focal renal lesion is ev ident. No free fluid or enlarged lymph nodes are evident. The bladder, reproductive structures, rectum, and perirectal soft tissues are unremarkable appearing. There is scattered diverticula involving the colon without evidence of active diverticulitis. There is a mild amount of retained stool within the colon. there is a normal retrocecal appendix. There is diffuse osteopenia. There is scattered degenerative and osteoarthritic change. No definite a cute osseous abnormality is evident. There is postprocedural change consistent with prior tibial plat eau fracture, involving the left foreleg. There is heterotopic ossification overlying the left medial femoral condyle. The abdominal aorta demonstrates no aneurysmal dilatation or acute aortic dissection. The celiac and SMA appear patent. The right renal artery demonstrates moderate narrowing involving the origin and proximal aspects of the right main renal artery. The left main renal artery demonstrates moderate vishal rowing involving the origin and proximal aspects of the right main renal artery. The left main renal artery demonstrates moderate narrowing involving the origin and proximal segment. The JOSE J demonstrat es some mild narrowing at its origin. The right common iliac artery is patent. the right external catalina ac artery demonstrates an endograft stent along its proximal segment. There is high grade stenosis in volving the origin of the right internal iliac artery with moderate to high grade stenosis involving its mid to distal segment. There is moderate 50% luminal caliber narrowing the mid right external gabriel iac artery. Right common femoral artery demonstrates some mild atherosclerotic irregularity. The bifurcation is p atent. There is some multifocal high grade stenosis involving multiple points along the superficial f emoral artery on the right. There is complete occlusion of the distal right superficial femoral arter y with reconstitution in the proximal right popliteal artery. An additional occlusive segment is seen within the mid right popliteal artery with establishment of flow at the distal right popliteal arter y. There is flow within the tibioperoneal trunk and anterior tibial artery. There is multifocal areas of stenosis involving the right anterior tibial artery and right peroneal artery. The right posteri or tibial artery is completely occluded. Left common iliac artery is patent. the bifurcation demonstrates severe narrowing involving the left internal iliac artery. There is multifocal moderate narrowing involving the left external iliac arter y. There is a endograft stent within the left external iliac artery. Left common femoral artery is pa tent. The bifurcation is patent. There is multifocal moderate narrowing involving the proximal left s uperficial femoral artery. There is moderate to high grade stenosis involving the distal superficial femoral artery near the adductor hiatus. Left popliteal artery is patent. There is multifocal narrowi ng and multifocal stenosis involving the anterior tibial artery. The posterior tibial artery demonstr ates multifocal stenosis and is occluded at the mid foreleg. The peroneal artery extends to the level of the ankle. IMPRESSION: 1. Multifocal stenosis involving the right superficial femoral artery and right popliteal artery , some of which are completely occlusive. 2. Multifocal stenoses involving the anterior tibial artery and peroneal artery of the right low er extremity with complete occlusion of the right posterior tibial artery. 3. Multifocal high grade stenosis involving the distal left superficial femoral artery. 4. Multifocal high grade stenosis involving the left anterior tibial artery with complete occlus ion of a left posterior tibial artery within the mid foreleg. 5. High grade stenosis involving the origins of the internal iliac arteries bilaterally. 6. Bilateral external iliac artery endograft stents with multifocal moderate atherosclerotic vishal rowing. 7. Moderate narrowing involving the origin and proximal segments of bilateral renal arteries. POS: BH
== END 2020-02-20 14:20 | disposition home or self-care (01) ==
LOC: BICCT 14:19
PROVIDERS: ATTEND Thoracic Surgery (Cardiothoracic Vascular Surgery)
DX: I70.221 Atherosclerosis of native arteries of extremities with rest pain, right leg (principal); I70.1 Atherosclerosis of renal artery; I70.8 Atherosclerosis of other arteries; Z95.828 Presence of other vascular implants and grafts
CPT/HCPCS: 75635; Q9967

== ENCOUNTER 2020-03-15 08:56 | Inpatient (IN) | payer MEDICARE ==
[2020-03-15] MEDS ORDERED: Clindamycin/D5W 900 mg/50 ml Premix Bag ONE (09:47)
[2020-03-15] MEDS ORDERED: Levofloxacin 500 mg/D5W 100 ml Premix Bag ONE (09:47)
[2020-03-15] MEDS ORDERED: Glycopyrrolate 0.2 MG/ML 5 ML SYRINGE ONE (10:26)
[2020-03-15] MEDS ORDERED: PHENYLEPHRINE-NS 100 MCG/ML 10 ML SYRINGE ONE (10:26)
[2020-03-15] MEDS ORDERED: PROPOFOL 200 MG/20 ML VIAL ONE (10:26)
[2020-03-15] MEDS ORDERED: Rocuronium Bromide 10 MG/ML (10ML VIAL) ONE (10:26)
[2020-03-15] MEDS ORDERED: Lidocaine 1% PF 5 ML VIAL ONE (10:26)
[2020-03-15 10:27] LABS: #Basophils 0.1 thou/uL (0.0-0.2); #Eosinphils 0.2 thou/uL (0.0-0.7); #Monocytes 0.6 thou/uL (0.11-0.59); #Neutrophils 2.5 thou/uL (1.40-6.50); %Eosinophils 4.3 % (0.0-10.0); %Lymphocytes 36.4 % (21.0-51.0); %Monocytes 11.1 % (0.0-10.0); %Neutrophils 47.2 % (42.0-75.0); Hemoglobin 10.5 g/dL (12.0-16.0); Mean Corpuscular HGB CONC 32.3 g/dL (32.0-36.0); Mean Corpuscular Hemoglobin 32.3 pg (27.0-31.0); Mean Platelet Volume 7.9 fL (7.4-10.4); Platelet Count 246 thou/uL (130-400); RBC Distribution Width 12.1 % (11.5-14.5); Red Blood Cell (RBC) Count 3.26 mill/uL (4.20-5.40); White Blood Cell (WBC) Count 5.4 thou/uL (4.8-10.8)
[2020-03-15 10:41] LABS: Anion Gap 14 mmol/L (10-20); BUN (Urea Nitrogen) 21 mg/dL (9.8-20.1); Calc. Creatinine Clearance 0 mL/min (70-130); Calcium 9.7 mg/dL (7.8-10.44); Carbon Dioxide 26 mmol/L (23-31); Chloride 106 mmol/L (98-107); Glucose 97 mg/dL (80-115); Sodium 142 mmol/L (136-145)
[2020-03-15] MEDS ORDERED: Dextrose 50% Abboject 50 ML SYRINGE ONE (14:14)
[2020-03-15] MEDS ORDERED: Protamine Sulfate 50 MG/5 ML VIAL ONE (15:10)
[2020-03-15] MEDS ORDERED: Heparin 5,000 UNITS/ML VIAL ONE (15:10)
[2020-03-15] MEDS ORDERED: Fentanyl 100 MCG/2 ML VIAL ONE (15:55)
[2020-03-15] MEDS ORDERED: Phenylephrine 10 MG/ML VIAL ONE (15:56)
[2020-03-15] MEDS ORDERED: Nitroglycerin 50 MG/250 ML BOT 250 ML ONE (15:56)
[2020-03-15] MEDS ORDERED: hydrALAZINE 20 MG/ML VIAL ONE (15:56)
[2020-03-15] MEDS ORDERED: Ondansetron PF 4 MG/2 ML Vial IVP PRN (18:08)
[2020-03-15] MEDS ORDERED: traMADol HCl 50 MG TAB PO PRN (18:08)
[2020-03-15] MEDS ORDERED: Insulin Regular 300 UNITS/3 ML VIAL SC PRN (18:08)
[2020-03-15] MEDS ORDERED: Ondansetron PF 4 MG/2 ML Vial ONE (18:16)
[2020-03-15] MEDS ORDERED: Promethazine HCl 25 MG/ML VIAL SLOW IVP PRN (18:20)
[2020-03-15] MEDS ORDERED: Ondansetron HCl/PF 4 MG/2 ML Vial IVP PRN (18:20)
[2020-03-15] MEDS ORDERED: Promethazine HCl 25 MG/ML VIAL IM PRN (18:20)
[2020-03-15] MEDS: Atorvastatin Calcium 40 MG TAB PO SCH (20:42)
[2020-03-15] MEDS: NIFEdipine XL 30 MG TAB PO SCH (20:42)
[2020-03-15] MEDS: CEFAZOLIN 2 GM in Premix Bag 1 BAG IVPB SCH (20:43)
[2020-03-15] MEDS: Ketorolac Tromethamine 30 MG/ML VIAL IVP SCH (20:43)
[2020-03-15 22:35] VITALS: BMI 20.7
[2020-03-16] MEDS: CEFAZOLIN 2 GM in Premix Bag 1 BAG IVPB SCH ×2 (05:40→13:52)
[2020-03-16] MEDS: Ketorolac Tromethamine 30 MG/ML VIAL IVP SCH ×2 (05:41→13:49)
[2020-03-16] MEDS: Aspirin Chewable 81 MG TAB PO SCH (07:58)
[2020-03-16] MEDS: Lisinopril/Hydrochlorothiazide 20/25 mg Tablet PO SCH (07:58)
[2020-03-16] MEDS: Glimepiride 4 MG TAB PO SCH (07:58)
[2020-03-16] MEDS: Polyethylene Glycol 3350 17 GM Packet PO SCH (07:58)
[2020-03-16] MEDS ORDERED: Clopidogrel Bisulfate 75 MG TAB PO SCH ×2 (10:00→10:15)
[2020-03-16] MEDS ORDERED: FLU VACC QS2020-21(65YR UP)/PF 240 MCG/0.7 ML SYRINGE IM ONE (10:45)
--- NOTE | 2020-03-16 14:16 | RAD ---
Right lower extremity MRI without IV contrast: HISTORY: Wound middle toe nonhealing history of diabetes mellitus dialysis patient FINDINGS: Multiplanar multisequence MRI examination of the foot is performed. The ankle is included but this ex am was not protocoled for an ankle protocol and some of the ankle is poorly demonstrated. Status post amputation of the fifth toe at the distal metatarsal and amputation of the first toe at t he proximal first metatarsal. There is minimal soft tissue swelling with some minimal STIR and T2 hyperintensity and subtle T1 hypointensity involving the middle and distal phalanges of the third toe . There is minimal soft tissue swelling of the distal fourth toe with some subtle T2 hyperintensity but no significant T1 hypointensity. Focal soft tissue T1 hypointense T2 hyperintense of fullness noted over the lateral malleolus. No funmi dence for underlying osteomyelitis. No evidence for drainable abscess. Generalized muscle volume loss of the intrinsic muscles of the foot evidence for diabetes. IMPRESSION: Subtle changes of abnormal signal involving the middle and distal phalanges of the third toe possibly mild osteomyelitis. Minimal T2 hyperintensity changes involving the middle and distal phalanges of the second toe more fa vored to be nonspecific osteitis. Focal soft tissue edema overlying the lateral malleolus without evidence for osteomyelitis or evidenc e for drainable abscess. This exam was not tailored to ankle exam so that the ankle is less than optimally imaged.
[2020-03-16] MEDS: Atorvastatin Calcium 40 MG TAB PO SCH (21:31)
[2020-03-16] MEDS: NIFEdipine XL 30 MG TAB PO SCH (21:31)
[2020-03-16] MEDS: traMADol HCl 50 MG TAB PO PRN (23:54)
[2020-03-17] MEDS: Acetaminophen 325 MG TAB PO PRN ×2 (03:24→09:56)
[2020-03-17] MEDS: Glimepiride 4 MG TAB PO SCH (07:42)
--- NOTE | 2020-03-17 07:53 | OP ---
DATE OF PROCEDURE: 03/15/2020 PREOPERATIVE DIAGNOSIS: Ischemic rest pain, right foot with ulcer right third toe. PROCEDURES PERFORMED: Right external iliac artery stent, 7 x 40 Sentinol stent posted with a 7 balloon and right common femoral endarterectomy extending into the proximal superficial femoral artery with bovine patch angioplasty. ANESTHESIA: General. ESTIMATED BLOOD LOSS: 100. CONTRAST: 15 mL. FLUOROSCOPY: 3 minutes and 50 seconds. DESCRIPTION OF PROCEDURE: After adequate anesthesia had been obtained, the patient was prepped and draped, incision was made in the right groin. Incision was slightly high over the inguinal ligament and the common femoral artery was dissected out. Incision extended caudally to allow access to the superficial and profunda femoral vessels. 6000 units of heparin were given, following which a needle and wire and a 6-Welsh marker sheath were placed in the proximal common femoral artery. Angiography was obtained demonstrating about a 60% to 70% stenosis of the right external iliac artery just distal to a prior stent. It also demonstrated the subtotal occlusion in the common femoral artery. Following placement of the 7 x 40 Nitinol stent overlapping the prior stent slightly, a 6 mm balloon and then a 7 x 40 balloon were used to inflate the new stent. Completion angiography showed no residual stenosis. Following this, the sheath was removed. Clamps were applied to the distal external iliac artery above the right circumflex femoral artery. The profunda and superficial femoral arteries were clamped. Arteriotomy performed from the common femoral artery proximally onto the superficial femoral artery. Endarterectomy was then performed clearing the ostium of the profunda and superficial femoral artery. The area was irrigated, backflushed, and then a bovine patch was used to secure the arteriotomy. Flow was then restored down the deep and then superficial femoral artery with a good pulse. After obtaining good hemostasis, the wound was closed in layers and the patient was to be taken to the recovery room. Job ID: [id number]
[2020-03-17] MEDS: Polyethylene Glycol 3350 17 GM Packet PO SCH (08:44)
[2020-03-17] MEDS: Aspirin Chewable 81 MG TAB PO SCH (08:45)
[2020-03-17] MEDS: Lisinopril/Hydrochlorothiazide 20/25 mg Tablet PO SCH (08:45)
[2020-03-17] MEDS: Clopidogrel Bisulfate 75 MG TAB PO SCH (08:45)
--- NOTE | 2020-03-17 12:44 | RAD ---
AP CHEST: HISTORY: Fever. Postop. FINDINGS: No focal infiltrate. No evidence of vascular congestion. Heart and mediastinum unremarkable. IMPRESSION: No acute lung process. POS: AGW
[2020-03-17 14:03] LABS: Bilirubin Negative (Negative); Blood, Urine Negative (Negative); Clarity Clear (Clear); Glucose, Urine (Dipstick) Normal (Negative); Ketone, Urine Negative (Negative); Leukocyte 250 Leu/uL (Negative); Nitrite Negative (Negative); Protein, Urine (Dipstick) Negative (Neg-Trace); RBC/HPF 0-3 HPF (0-3); Specific Gravity, Urine 1.019 (1.002-1.036); Squamous Epithelial 0-3 HPF (0-3); Urobilinogen Normal mg/dL (Less than 2); pH, Urine 5.5 (5.0-9.0)
[2020-03-17 14:05] LABS: Bacteria/HPF 1+ HPF (None Seen)
[2020-03-17] MEDS: Atorvastatin Calcium 40 MG TAB PO SCH (19:44)
[2020-03-17] MEDS: traMADol HCl 50 MG TAB PO PRN (19:44)
[2020-03-17] MEDS: Fentanyl 100 MCG/2 ML VIAL SLOW IVP PRN (19:45)
[2020-03-17] MEDS: NIFEdipine XL 30 MG TAB PO SCH (21:16)
[2020-03-18] MEDS: traMADol HCl 50 MG TAB PO PRN (05:32)
[2020-03-18] MEDS: Glimepiride 4 MG TAB PO SCH (07:41)
[2020-03-18] MEDS: Polyethylene Glycol 3350 17 GM Packet PO SCH (08:29)
[2020-03-18] MEDS: Aspirin Chewable 81 MG TAB PO SCH (08:30)
[2020-03-18] MEDS: Lisinopril/Hydrochlorothiazide 20/25 mg Tablet PO SCH (08:30)
[2020-03-18] MEDS: Clopidogrel Bisulfate 75 MG TAB PO SCH (08:30)
[2020-03-18] MEDS: Fentanyl 100 MCG/2 ML VIAL SLOW IVP PRN (08:32)
[2020-03-18 16:41] VITALS: BP 134/64; TEMP 98.4
--- NOTE | 2020-03-19 09:08 | DIS ---
DATE OF ADMISSION: 03/15/2020 DATE OF DISCHARGE: 03/18/2020 HOSPITAL COURSE: The patient was admitted for rest pain and ulceration of the right foot and underwent a right external iliac artery stent and right common femoral endarterectomy. This was extended onto the superficial femoral artery and also involved the deep femoral artery. Postoperatively, her foot pain resolved and she did well. She did have some low-grade fever and a urinalysis was suggestive of urinary tract infection, although no cultures were obtained. She will be discharged home on Plavix 75 a day for three months, aspirin 81 a day, and Levaquin 500 a day for five days. Discharge and followup instructions were given. Job ID: [id number]
== END 2020-03-18 18:21 | DRG 253 ==
LOC: SURG A 08:56
PROVIDERS: ADMIT Thoracic Surgery (Cardiothoracic Vascular Surgery); ATTEND Thoracic Surgery (Cardiothoracic Vascular Surgery)
PROC: 04CK0ZZ Extirpation of Matter from Right Femoral Artery, Open Approach (ICD-10-PCS; principal; 2020-03-15)
PROC: 04UK0KZ Supplement Right Femoral Artery with Nonautologous Tissue Substitute, Open Approach (ICD-10-PCS; 2020-03-15)
PROC: 047H0DZ Dilation of Right External Iliac Artery with Intraluminal Device, Open Approach (ICD-10-PCS; 2020-03-15)
DX: E11.51 Type 2 diabetes mellitus with diabetic peripheral angiopathy without gangrene (principal); I69.354 Hemiplegia and hemiparesis following cerebral infarction affecting left non-dominant side; N39.0 Urinary tract infection, site not specified; I70.239 Atherosclerosis of native arteries of right leg with ulceration of unspecified site; M81.0 Age-related osteoporosis without current pathological fracture; I10 Essential (primary) hypertension; E78.2 Mixed hyperlipidemia; Z98.51 Tubal ligation status; Z79.4 Long term (current) use of insulin; Z79.82 Long term (current) use of aspirin; Z79.899 Other long term (current) drug therapy; Z87.891 Personal history of nicotine dependence; Z88.8 Allergy status to other drugs, medicaments and biological substances
CPT/HCPCS: 36415; 36416; 71045; 76000; 80048; 81003; 81015; 85025; 86850; 86900; 86901; 87635; 90471; 90662; 90732; C1725; C9803; G0008; G0009; J0360; J0690; J1644; J1885; J1956; J2370; J2405; J2704; J2720; J3010; J3490; U0003